=== PATIENT | female | born 1995 | race Caucasian/White ===

== ENCOUNTER 2016-10-15 12:50 | Emergency (ER) | payer MEDICAID ==
[~2016-10-15] VITALS: Ht 175.3 cm; Wt 65.8 kg
[2016-10-15 13:20] VITALS: BP 132/84
== END 2016-10-15 14:19 | disposition home or self-care (01) ==
LOC: ER 12:50
DX: J02.9 Acute pharyngitis, unspecified (principal); G43.909 Migraine, unspecified, not intractable, without status migrainosus; N39.0 Urinary tract infection, site not specified

== ENCOUNTER 2019-02-18 17:17 | Emergency (ER) | payer MEDICAID ==
[~2019-02-18] VITALS: Ht 175.3 cm; Wt 63.5 kg
[2019-02-18 18:37] VITALS: BP 112/63
[2019-02-18 18:41] LABS: Urine Bacteria FEW /hpf (None Seen); Urine Blood 3+ /uL (Negative); Urine Specific Gravity 1.011 (1.001-1.035); Urine WBC 122 /hpf (0 - 5)
== END 2019-02-18 19:36 | disposition home or self-care (01) ==
LOC: ER 17:17
DX: N39.0 Urinary tract infection, site not specified (principal)
CPT/HCPCS: 81001

== ENCOUNTER 2022-04-18 02:50 | Emergency (ER) | payer MEDICAID ==
[~2022-04-18] VITALS: Ht 177.8 cm; Wt 81.8 kg
[2022-04-18] MEDS ORDERED: AMOX500T3 PO (04:27)
[2022-04-18 04:50] VITALS: BP 110/65
== END 2022-04-18 05:11 | disposition home or self-care (01) ==
LOC: ER 02:50
DX: J03.90 Acute tonsillitis, unspecified (principal); Z88.1 Allergy status to other antibiotic agents